=== PATIENT | male | born 1975 | race Caucasian/White ===

== ENCOUNTER 2021-10-14 16:20 | Inpatient (IN) | payer OTHER ==
[2021-10-14 18:00] VITALS: BMI 21.8
[2021-10-15] MEDS ORDERED: chlordiazePOXIDE HCL 25 MG CAPSULE PO ONE (00:04)
[2021-10-15] MEDS ORDERED: MAGNESIUM HYDROX 2400MG/30ML ORAL SUSPENSION 30 ML CUP PO PRN (00:04)
[2021-10-15] MEDS ORDERED: chlordiazePOXIDE HCL 25 MG CAPSULE PO PRN (00:04)
[2021-10-15] MEDS ORDERED: LOPERAMIDE HCL 2 MG CAPSULE PO PRN (00:04)
[2021-10-15] MEDS ORDERED: NICOTINE 10 MG CARTRIDGE (INHALER) IH PRN (00:04)
[2021-10-15] MEDS ORDERED: BISMUTH SUBSALICYLATE 524 MG/30 ML PO PRN (00:04)
[2021-10-15] MEDS ORDERED: DICYCLOMINE HCL 10 MG CAPSULE PO PRN (00:04)
[2021-10-15] MEDS ORDERED: ONDANSETRON *ODT* 4 MG TABLET SL PRN (00:04)
[2021-10-15] MEDS ORDERED: ACETAMINOPHEN 325 MG TABLET (FP) PO PRN ×2 (00:04)
[2021-10-15] MEDS ORDERED: MAGNESIUM CITRATE 300 ML BOTTLE PO PRN (00:04)
[2021-10-15] MEDS ORDERED: MAG HYDROX/AL HYDROX/SIMETH 30 ML UNIT-DOSE CUP PO PRN (00:04)
[2021-10-15] MEDS ORDERED: BENZOCAINE/MENTHOL (CHLORASEPTIC ) LOZENGE MM PRN (00:04)
[2021-10-15] MEDS ORDERED: IBUPROFEN 400 MG TABLET (FP) PO PRN (00:04)
[2021-10-15] MEDS: chlordiazePOXIDE HCL 25 MG CAPSULE PO SCH ×4 (06:02→22:43)
[2021-10-15] MEDS: CEPHALEXIN MONOHYDRATE 500 MG CAPSULE (UD) PO SCH ×3 (06:02→17:30)
[2021-10-15 10:44] LABS: HEMATOCRIT 41.8 % (35.4-49); HEMOGLOBIN 13.8 GM/dL (11.7-16.9); MCH 27.4 pg (25.7-33.7); MCHC 33.1 g/dl (32.0-35.9); MEAN PLT VOLUME 8.3 fl (7.5-11.1); PLATELET COUNT 200 10^3/uL (134-434); RBC 5.04 M/mm3 (4.00-5.60); RDW 15.6 % (11.9-15.9); WHITE BLOOD COUNT 4.7 K/mm3 (4.0-10.0)
[2021-10-15] MEDS ORDERED: methaDONE HCL 40 MG DISPERSABLE TABLET PO SCH (10:45)
[2021-10-15] MEDS ORDERED: methaDONE HCL 40 MG DISPERSABLE TABLET ONE ×2 (10:53→11:01)
[2021-10-15] MEDS ORDERED: methaDONE HCL 10 MG TABLET ONE ×2 (10:53→11:01)
[2021-10-15] MEDS: PRENATAL VITAMINS W/ FOLIC ACID TABLET (FP) PO SCH (10:54)
[2021-10-15] MEDS: TOLNAFTATE 1% CREAM 15 GM TUBE TP SCH ×2 (10:55→22:46)
[2021-10-15] MEDS: METHOCARBAMOL 500 MG TABLET PO PRN (11:02)
[2021-10-15 11:07] LABS: CALCIUM 8.7 mg/dL (8.5-10.1)
[2021-10-15 11:08] LABS: BLOOD UREA NITROGEN 21.2 mg/dL (7-18)
[2021-10-15 11:12] LABS: BILIRUBIN,TOTAL 0.4 mg/dL (0.2-1)
[2021-10-15 11:13] LABS: TOT PROT 7.7 g/dl (6.4-8.2)
[2021-10-15 11:34] LABS: CREATININE 0.7 mg/dL (0.55-1.3)
[2021-10-15] MEDS: BACITRACIN 15 GM TUBE TOPICAL OINTMENT TP SCH ×2 (15:02→22:46)
[2021-10-15] MEDS: THIAMINE HCL 100 MG TABLET (FP) PO SCH (22:44)
[2021-10-16] MEDS: CEPHALEXIN MONOHYDRATE 500 MG CAPSULE (UD) PO SCH ×4 (00:03→18:46)
[2021-10-16] MEDS ORDERED: methaDONE HCL 10 MG TABLET ONE (04:27)
[2021-10-16] MEDS ORDERED: methaDONE HCL 40 MG DISPERSABLE TABLET ONE (04:27)
[2021-10-16] MEDS: chlordiazePOXIDE HCL 25 MG CAPSULE PO SCH ×4 (06:20→22:45)
[2021-10-16] MEDS: TOLNAFTATE 1% CREAM 15 GM TUBE TP SCH ×2 (10:19→22:44)
[2021-10-16] MEDS: hydrOXYzine PAMOATE 25 MG CAPSULE (FP) PO PRN ×3 (10:19→22:44)
[2021-10-16] MEDS: PRENATAL VITAMINS W/ FOLIC ACID TABLET (FP) PO SCH (10:19)
[2021-10-16] MEDS: METHOCARBAMOL 500 MG TABLET PO PRN ×2 (10:19→18:48)
[2021-10-16] MEDS: BACITRACIN 15 GM TUBE TOPICAL OINTMENT TP SCH ×2 (10:22→22:58)
[2021-10-16] MEDS: MELATONIN 5 MG TABLETS PO PRN (22:44)
[2021-10-16] MEDS: THIAMINE HCL 100 MG TABLET (FP) PO SCH (22:45)
[2021-10-16] MEDS: IBUPROFEN 400 MG TABLET (FP) PO PRN (22:52)
[2021-10-17] MEDS ORDERED: chlordiazePOXIDE HCL 10 MG CAPSULE PO PRN
[2021-10-17] MEDS: CEPHALEXIN MONOHYDRATE 500 MG CAPSULE (UD) PO SCH ×4 (00:39→17:54)
[2021-10-17] MEDS ORDERED: methaDONE HCL 10 MG TABLET ONE (04:38)
[2021-10-17] MEDS ORDERED: methaDONE HCL 40 MG DISPERSABLE TABLET ONE (04:38)
[2021-10-17] MEDS: chlordiazePOXIDE HCL 10 MG CAPSULE PO SCH ×4 (05:44→22:30)
[2021-10-17] MEDS: PRENATAL VITAMINS W/ FOLIC ACID TABLET (FP) PO SCH (10:32)
[2021-10-17] MEDS: TOLNAFTATE 1% CREAM 15 GM TUBE TP SCH ×2 (10:32→22:15)
[2021-10-17] MEDS: BACITRACIN 15 GM TUBE TOPICAL OINTMENT TP SCH ×2 (10:34→23:15)
[2021-10-17] MEDS: hydrOXYzine PAMOATE 25 MG CAPSULE (FP) PO PRN ×2 (17:54→22:29)
[2021-10-17] MEDS: IBUPROFEN 400 MG TABLET (FP) PO PRN (17:55)
[2021-10-17] MEDS: MELATONIN 5 MG TABLETS PO PRN (22:29)
[2021-10-17] MEDS: THIAMINE HCL 100 MG TABLET (FP) PO SCH (22:29)
[2021-10-17] MEDS: METHOCARBAMOL 500 MG TABLET PO PRN (22:30)
[2021-10-18] MEDS: CEPHALEXIN MONOHYDRATE 500 MG CAPSULE (UD) PO SCH ×4 (01:31→18:14)
[2021-10-18] MEDS ORDERED: methaDONE HCL 40 MG DISPERSABLE TABLET ONE (04:25)
[2021-10-18] MEDS ORDERED: methaDONE HCL 10 MG TABLET ONE (04:25)
[2021-10-18] MEDS: chlordiazePOXIDE HCL 10 MG CAPSULE PO SCH ×2 (06:25→18:15)
[2021-10-18] MEDS: PRENATAL VITAMINS W/ FOLIC ACID TABLET (FP) PO SCH (10:21)
[2021-10-18] MEDS: TOLNAFTATE 1% CREAM 15 GM TUBE TP SCH ×2 (10:21→22:58)
[2021-10-18] MEDS: BACITRACIN 15 GM TUBE TOPICAL OINTMENT TP SCH ×2 (10:22→22:57)
[2021-10-18 16:17] LABS: SARS-CoV-2 NAA Not Detected (Not Detected)
[2021-10-18] MEDS: hydrOXYzine PAMOATE 25 MG CAPSULE (FP) PO PRN ×2 (18:14→22:18)
[2021-10-18] MEDS: IBUPROFEN 400 MG TABLET (FP) PO PRN (18:15)
[2021-10-18] MEDS: MELATONIN 5 MG TABLETS PO PRN (22:17)
[2021-10-18] MEDS: THIAMINE HCL 100 MG TABLET (FP) PO SCH (22:18)
[2021-10-19] MEDS ORDERED: methaDONE HCL 10 MG TABLET ONE (04:12)
[2021-10-19] MEDS ORDERED: methaDONE HCL 40 MG DISPERSABLE TABLET ONE (04:12)
[2021-10-19] MEDS ORDERED: chlordiazePOXIDE HCL 10 MG CAPSULE PO ONE (05:00)
[2021-10-19] MEDS: CEPHALEXIN MONOHYDRATE 500 MG CAPSULE (UD) PO SCH ×3 (05:38→12:29)
[2021-10-19] MEDS: TOLNAFTATE 1% CREAM 15 GM TUBE TP SCH (10:31)
[2021-10-19] MEDS: PRENATAL VITAMINS W/ FOLIC ACID TABLET (FP) PO SCH (10:31)
[2021-10-19] MEDS: BACITRACIN 15 GM TUBE TOPICAL OINTMENT TP SCH (10:32)
[2021-10-19 13:51] VITALS: BP 108/66; PULSE 80; TEMP 97.1
[2021-10-19 14:08] LABS: SARS-CoV-2 NAA Not Detected (Not Detected)
== END 2021-10-19 15:03 | disposition other institution (70) | DRG 773 ==
LOC: YASAS 16:20 → Y6N 23:31
PROVIDERS: ADMIT Allergy & Immunology; ATTEND Allergy & Immunology
PROC: HZ2ZZZZ Detoxification Services for Substance Abuse Treatment (ICD-10-PCS; principal; 2021-10-14)
DX: F10.230 Alcohol dependence with withdrawal, uncomplicated (principal); F11.20 Opioid dependence, uncomplicated; F14.20 Cocaine dependence, uncomplicated; F17.210 Nicotine dependence, cigarettes, uncomplicated; F19.24 Other psychoactive substance dependence with psychoactive substance-induced mood disorder; F19.280 Other psychoactive substance dependence with psychoactive substance-induced anxiety disorder; R79.89 Other specified abnormal findings of blood chemistry; L03.114 Cellulitis of left upper limb; M54.59 Other low back pain; G89.29 Other chronic pain; B35.3 Tinea pedis; Z56.0 Unemployment, unspecified; Z59.01 Sheltered homelessness
CPT/HCPCS: 36415; 80053; 84520; 85027; 86780; 93005; 93010; C9803-CS; U0003; U0005

== ENCOUNTER 2021-10-19 15:17 | Inpatient (IN) | payer OTHER ==
[2021-10-19] MEDS ORDERED: LOPERAMIDE HCL 2 MG CAPSULE PO PRN (15:30)
[2021-10-19] MEDS ORDERED: MAGNESIUM HYDROX 2400MG/30ML ORAL SUSPENSION 30 ML CUP PO PRN (15:30)
[2021-10-19] MEDS ORDERED: guaiFENesin 200 MG/10 ML 10 ML UNIT-DOSE CUPS PO PRN (15:30)
[2021-10-19] MEDS ORDERED: MAG HYDROX/AL HYDROX/SIMETH 30 ML UNIT-DOSE CUP PO PRN (15:30)
[2021-10-19] MEDS ORDERED: MAGNESIUM CITRATE 300 ML BOTTLE PO PRN (15:30)
[2021-10-19] MEDS ORDERED: BENZOCAINE/MENTHOL (CHLORASEPTIC ) LOZENGE MM PRN (15:30)
[2021-10-19] MEDS ORDERED: hydrOXYzine PAMOATE 25 MG CAPSULE (FP) PO PRN (15:30)
[2021-10-19] MEDS ORDERED: P-EPHED 60MG/TRIPROLIDI 2.5MG TABLET PO PRN (15:30)
[2021-10-19] MEDS ORDERED: IBUPROFEN 400 MG TABLET (FP) PO PRN (15:30)
[2021-10-19] MEDS ORDERED: NICOTINE 10 MG CARTRIDGE (INHALER) IH PRN (15:30)
[2021-10-19] MEDS ORDERED: ACETAMINOPHEN 325 MG TABLET (FP) PO PRN (15:30)
[2021-10-19] MEDS: METHOCARBAMOL 500 MG TABLET PO SCH ×2 (17:13→21:30)
[2021-10-19] MEDS: CEPHALEXIN MONOHYDRATE 500 MG CAPSULE (UD) PO SCH ×2 (17:13→23:06)
[2021-10-19] MEDS ORDERED: THIAMINE HCL 100 MG TABLET (FP) PO SCH (22:00)
[2021-10-19] MEDS ORDERED: TOLNAFTATE 1% CREAM 15 GM TUBE TP SCH (22:00)
[2021-10-19] MEDS ORDERED: MELATONIN 5 MG TABLETS PO SCH (22:00)
[2021-10-19] MEDS ORDERED: BACITRACIN 0.9 GM PACKET TP SCH (22:00)
[2021-10-20] MEDS: CEPHALEXIN MONOHYDRATE 500 MG CAPSULE (UD) PO SCH (03:50)
[2021-10-20] MEDS ORDERED: methaDONE HCL 10 MG TABLET ONE (05:54)
[2021-10-20] MEDS ORDERED: methaDONE HCL 40 MG DISPERSABLE TABLET ONE (05:54)
[2021-10-20 07:17] VITALS: BP 110/74; PULSE 78; TEMP 96.6
[2021-10-20] MEDS ORDERED: methaDONE HCL 40 MG DISPERSABLE TABLET PO SCH (10:00)
[2021-10-20] MEDS ORDERED: PRENATAL VITAMINS W/ FOLIC ACID TABLET (FP) PO SCH (10:00)
[2021-10-20] MEDS ORDERED: NICOTINE 7 MG/24 HOURS TOPICAL PATCH TD SCH (10:00)
== END 2021-10-20 09:32 | disposition left against medical advice (07) | DRG 770 ==
LOC: YASAS 15:17 → Y3W 15:18
PROVIDERS: ADMIT Allergy & Immunology; ATTEND Psychiatry & Neurology Pain Medicine
PROC: HZ42ZZZ Group Counseling for Substance Abuse Treatment, Cognitive-Behavioral (ICD-10-PCS; principal; 2021-10-20)
DX: F10.20 Alcohol dependence, uncomplicated (principal); F12.20 Cannabis dependence, uncomplicated; F14.20 Cocaine dependence, uncomplicated